=== PATIENT | female | born 2005 | race Two or more races ===

== ENCOUNTER 2025-09-26 22:36 | Emergency (ER) | payer BC, MEDICAID, SELFPAY ==
[2025-09-26 22:37] VITALS: BMI 24.1
[2025-09-26 23:44] VITALS: BP 106/62; PULSE 108; RESP 20; TEMP 37.3; O2SAT 98
--- NOTE | 2025-09-27 00:32 | PD.EDFEVER ---
ED Fever RME/HPI General Chief Complaint: Nausea/Vomiting/Diarrhea Stated Complaint: N/V/FEVER, APPROX 10WEEKS PREG Time Seen by Provider: 09/27/25 00:48 Arrival date/time: 09/26/25 22:36 RME / HPI RME / HPI Narrative: See MDM for Dr. Donato's HPI Documentation. Related Data Previous Rx's ?Medication ?Instructions ?Recorded ondansetron 4 mg disintegrating 4 mg PO TID PRN nausea and 09/27/25 tablet vomiting 30 days #30 tabs oseltamivir 75 mg capsule (Tamiflu) 75 mg PO BID 5 days #10 caps 09/27/25 Allergies Allergy/AdvReac Type Severity Reaction Status Date / Time No Known Allergies Allergy Verified 09/26/25 22:38 Review of Systems Review of Systems Systems Reviewed: All systems reviewed, normal except as documented Past Medical History Social History SMOKING STATUS: Never smoker Physical Exam Narrative Physical exam: See MDM for Dr. Donato's Physical Exam Documentation. ED Exam Narrative Physical exam: See MDM for Dr. Donato's Physical Exam Documentation. Course Quality Measures none Orders Category Date Time Status Bedside COVID-19 Antigen Test NOW Care 09/27/25 00:50 Completed Bedside Influenza A&B Antigen Test NOW Care 09/27/25 00:50 Completed Saline [Insert IV] NOW Care 09/27/25 00:49 Completed US OB >= 14 weeks Fetus Stat Exams 09/27/25 00:50 Completed US abdomen limited Stat Exams 09/27/25 00:51 Completed US gall bladder Stat Exams 09/27/25 00:50 Completed XR chest 1V portable Stat Exams 09/27/25 00:50 Completed Amylase Stat Lab 09/27/25 01:41 Completed Beta HCG,Quantitative Stat Lab 09/27/25 01:41 Completed Bilirubin,Direct Stat Lab 09/27/25 01:41 Completed Blood Culture (Lab) Stat Lab 09/27/25 01:41 Received CBC Stat Lab 09/27/25 01:41 Completed CMP [Comprehensive Metabolic Panel] Stat Lab 09/27/25 01:41 Completed CRP [C-Reactive Protein] Stat Lab 09/27/25 01:41 Completed ESR [Sed Rate (ESR)] Stat Lab 09/27/25 01:41 Completed Lactate (Lactic Acid) Stat Lab 09/27/25 01:41 Completed Lipase Stat Lab 09/27/25 01:41 Completed Magnesium Stat Lab 09/27/25 01:41 Completed Procalcitonin Stat Lab 09/27/25 01:41 Completed Rh Testing Only Stat Lab 09/27/25 01:41 Completed TSH [Thyroid Stimulating Hormone] Stat Lab 09/27/25 01:41 Completed Acetaminophen Tab [Tylenol ES Tab] Med 09/27/25 00:49 Discontinued 1,000 mg PO X1 ONE Morphine* Inj Med 09/27/25 00:49 Discontinued 2 mg IV X1 ONE Ondansetron Inj [Zofran Inj] Med 09/27/25 00:49 Discontinued 4 mg IVP X1 ONE Oseltamivir [Tamiflu] Med 09/27/25 02:49 Discontinued 75 mg PO X1 ONE Sodium Chloride 0.9% 1000 ml [Ns] 1,000 ml Med 09/27/25 00:49 Discontinued IV 999 mls/hr Vital Signs Vital signs: Vital Signs Temperature 99.2 F 09/26/25 23:44 Pulse Rate 108 H 09/26/25 23:44 Respiratory Rate 20 09/26/25 23:44 Blood Pressure 106/62 09/26/25 23:44 Pulse Oximetry (%) 98 09/26/25 23:44 Oxygen Delivery Method Room Air 09/26/25 23:44 Fever MDM Narrative MDM Narrative:: This section includes all my notes and documentations, including HPI, PE, and ED course. Baldo Donato MD HPI: 19 y/o female here with about 24-hour history of headache subjective fever and chills and bodyaches and malaise and nausea. She is currently , about 8 weeks . No care yet. She reports cramping. No vaginal bleeding. No other complaints. ROS: All negative except as documented in HPI. Physical Exam: General: Alert and oriented. Appears uncomfortable. Fever noted. Eyes: Conjunctivae and lids clear. EOMI. PERRL. ENT: No nasal congestion. Pharynx normal. Tympanic membrane normal bilaterally. Neck: Supple. No lymphadenopathy. Heart: RRR. Lungs: No respiratory distress. Good air movement. No rhonchi, wheezing, rales. Abdomen: Soft with equivocal tenderness, difficult to localize. Normal bowel sounds. No distension. No rebound or guarding. Back: No CVA tenderness. Legs: No clubbing, cyanosis, edema. Skin: Warm and dry. Neuro: Alert and oriented X 3. I reviewed all diagnostic test results: My interpretation of the chest x-ray is NAD. My review of the US report is 7 5/7-week IUP. My review of the Gallbladder US report is NAD. My review of the Abdomen US report is no appendicitis. Blood tests and urine tests unremarkable. Covid/Strep negative. Influenza Positive. At this point, diagnoses include: Influenza Treatment here included: IVF Tylenol 1 G PO Morphine 2 mg IV Zofran 4 mg IV Tamiflu 75 mg PO Significant improvement noted. Recommended more outpatient care. Based on my best medical judgment, made decision no further evaluation or treatment indicated at this time. Patient and sister understands and agrees to the discharge instructions customized and printed, see below. Discharge Instructions from Dr. Donato printed for you: 1. After evaluation, you are sick from Influenza (see attached handout). Take Tamiflu as prescribed. Eat regular nutritious meals. For good hydration, increase oral fluid and maintain clear urine. If dark or yellow, increase oral fluid. Zofran for nausea/vomiting. 2. Your baby is alive and doing well. Take vitamins daily. 3. See a private doctor on 09/28/2025 for recheck. Ask to review all test results and official radiology reports, to make sure you receive all necessary follow-ups and monitoring. Ask for help seeing nutrition services assistant to start your care. 4. Seek immediate medical care with worsening or vaginal bleeding or with any concerns. Baldo Donato MD Patient data External records reviewed:: [facility] previous records (No prior ED records available for review) Clinical information provided by:: patient Social determinants that could affect healthcare access:: none Patient has the following chronic illnesses:: None reported How is presenting disease/condition affected by chronic disease/condition?: no chronic disease Evaluation data The following diagnostics were reviewed and interpreted by me:: lab results and radiology exam(s) Lab and/or radiology exams considered but not ordered:: None Interpretation Summary: I reviewed all diagnostic test results: My interpretation of the chest x-ray is NAD. My review of the US report is 7 5/7-week IUP. My review of the Gallbladder US report is NAD. My review of the Abdomen US report is no appendicitis. Blood tests and urine tests unremarkable. Covid/Strep negative. Influenza Positive. Medications / Prescriptions Medications or Prescriptions considered but not ordered:: None Medication administrations:: Medication Administration History Discontinued Medications Acetaminophen (Acetaminophen 500 Mg Tablet) 1,000 mg PO X1 ONE Stop: 09/27/25 00:50 Last Admin: 09/27/25 01:35 Dose: 1,000 mg Documented By: ROYAL Sodium Chloride (Ns) 1,000 mls @ 999 mls/hr IV .Q1H1M ONE Stop: 09/27/25 01:49 Last Infusion: 09/27/25 03:12 Dose: Infused Documented By: Admin: 09/27/25 01:34 Dose: 999 mls/hr Documented By: ROYAL Morphine Sulfate (Morphine Sulf Inj 4 Mg/Ml Vial) 2 mg IV X1 ONE Stop: 09/27/25 00:50 Last Admin: 09/27/25 01:35 Dose: 2 mg Documented By: ROYAL Ondansetron HCl (Ondansetron Inj 2 Mg/Ml Inj 2 Ml) 4 mg IVP X1 ONE; Protocol Stop: 09/27/25 00:50 Last Admin: 09/27/25 01:34 Dose: 4 mg Documented By: ROYAL Oseltamivir Phosphate (Oseltamivir 75 Mg Capsule) 75 mg PO X1 ONE Stop: 09/27/25 02:50 Last Admin: 09/27/25 03:10 Dose: 75 mg Documented By: ROYAL Treatment here included: IVF Tylenol 1 G PO Morphine 2 mg IV Zofran 4 mg IV Tamiflu 75 mg PO Consultations Consultation(s) initiated? (list below): No Diagnosis Fever Differential Diagnosis: fever of unknown origin, gastroenteritis, community acquired pneumonia, pyelonephritis, viral infection, sepsis and influenza Most likely diagnosis given after review of the tests above:: Influenza Admission Indicated Admission indicated?: not indicated Explain why admission is indicated or not indicated:: With significant improvement and no condition needing emergent intervention, there was no indication for admission. Admission Request Was there a request for admission?: No Disposition Plan Disposition Plan: Discharge Discharge Attestation Discharge Attestation: The patient and all family members were given an opportunity to ask questions and understood the discharge instructions. Discharge instructions specifically effects, indications for sooner follow up or return to the emergency department, and the expected course of current diagnosis. Patient condition: Stable Discharge Plan Plan Patient Disposition: HOME (Self Care) Prescriptions/Referrals Prescriptions/Med Rec: New oseltamivir [Tamiflu] 75 mg capsule 75 mg PO BID 5 Days Qty: 10 0RF ondansetron 4 mg tablet,disintegrating 4 mg PO TID PRN (Reason: nausea and vomiting) 30 Days Qty: 30 0RF Referrals: Alexia Joseph FNP ([email or web address]) [Primary Care Provider] - In 1 week Problem List Clinical Impression: Influenza, Patient/Caregiver Discharge Instructions Discharge Activity: activity as tolerated Education Materials: First Trimester, Preg 2nd Trimester, ED Influenza (Adult) Additional Instructions: Discharge Instructions from Dr. Donato printed for you: 1. After evaluation, you are sick from Influenza (see attached handout). Take Tamiflu as prescribed. Eat regular nutritious meals. For good hydration, increase oral fluid and maintain clear urine. If dark or yellow, increase oral fluid. Zofran for nausea/vomiting. 2. Your baby is alive and doing well. Take vitamins daily. 3. See a private doctor on 09/28/2025 for recheck. Ask to review all test results and official radiology reports, to make sure you receive all necessary follow-ups and monitoring. Ask for help seeing nutrition services assistant to start your care. 4. Seek immediate medical care with worsening or vaginal bleeding or with any concerns. Instrucciones de kelly del Dr. Donato (impresas para usted): 1. Tras la evaluaci?n, se le yang diagnosticado gripe (donis folleto adjunto). Sterling Tamiflu seg?n lo recetado. Consuma comidas nutritivas regularmente. Para john paul buena hidrataci?n, aumente la ingesta de l?quidos y aseg?rese de que la orina sea allison. Si est? oscura o amarilla, aumente la ingesta de l?quidos. Sterling Zofran para las n?useas y los v?mitos. 2. Gilmore beb? est? vivo y en buen estado de guy. Sterling vitaminas prenatales diariamente. 3. Consulte con un m?dico particular el 09/28/2025 para john paul revisi?n. Solicite revisar todos los resultados de las pruebas y los informes radiol?gicos oficiales para asegurarse de recibir el seguimiento y la monitorizaci?n necesarios. Solicite ayuda para programar john paul faby con un obstetra e iniciar gilmore atenci?n . 4. Busque atenci?n m?dica de inmediato si boubacar s?ntomas empeoran, si presenta sangrado vaginal o si tiene alguna otra inquietud. Print Language: Norwegian Stand Alone Forms: Maya Award Info., Work/School Release, Patient Portal Info Letter
--- NOTE | 2025-09-27 00:50 | XR_ITS ---
Examination: Abdomen sonogram, Limited Date and time of exam: 09/27/2025 at 3:52 a.m. CLINICAL INDICATION: Right upper quadrant tenderness for several hours Technique: Real-time heaton scale transabdominal sonographic images of the upper abdomen obtained. Findings: The gallbladder is very nicely visualized and appears perfectly normal and the gallbladder wall appears perfectly normal in thickness. Common bile duct appears normal, and its diameter measures 0.37 cm. The echogenicity is normal throughout the liver with no focal abnormalities are seen anywhere in the liver. No abnormalities are seen in the head or mid body of the pancreas. No ascites is noted. The upper third of the right kidney is visualized and no abnormalities are seen in this region. IMPRESSION: 1. Normal ultrasound exam of the right upper abdominal quadrant and gallbladder
--- NOTE | 2025-09-27 00:50 | XR_ITS ---
Upright PA chest film on 09/27/2025 at 1254 No comparison studies. CLINICAL INDICATION: female has fever chills and abdominal cramping for 24 hours The heart and mediastinum are radiographically normal. Both lungs and pleural space appear normal. The bony thorax appears normal IMPRESSION: 1. Normal chest for
--- NOTE | 2025-09-27 00:50 | XR_ITS ---
Examination: Complete OB ultrasound greater than 14 weeks Date and time of exam: 09/27/2025 at 3:36 a.m. CLINICAL INDICATION: Pelvic cramping pain no abnormal vaginal bleeding, recent positive test Findings: Viable intrauterine single fetus with single amniotic sac The crown-rump length of the fetus measures 1.3 consistent with 7-week 5-day gestational age. The size of the gestational sac measures 3.4 cm, consistent with gestational age of 8 weeks 4 days heart rate is 176 bpm. Normal yolk sac is visible. There is a very small curvilinear collection of fluid noted posterior inferior to the gestational sac consistent with a very small subchorionic hemorrhage. No abnormal fluid is seen in the cul-de-sac. The right ovary is completely obscured by overlying bowel gas. Left the left ovary has a normal size and configuration, and contains 1 small normal sized follicular cyst, maximum diameter 1.9 cm.. . Impression: 1. This study shows an early intrauterine with a single viable intrauterine fetus with a normal heart rate of 176 bpm. 2. There is an extremely minimal but definite subchorionic hemorrhage noted posteroinferior to the gestational sac. 3. There is a small normal size follicular cyst in the left ovary 4. No other abnormalities are seen anywhere in the study..
--- NOTE | 2025-09-27 00:51 | XR_ITS ---
Examination: Abdomen sonogram, Limited, attention to the right lower quadrant. Date and time of exam: 09/27/2025 at 3:33 a.m. INDICATION: Pain and fever for 1 day Technique: Real-time heaton scale transabdominal sonographic images of the upper abdomen obtained. Findings: There is a large amount of bowel gas overlapping the area of the cecum and appendix, these structures are not well seen at all Portion of the uterus can be identified, there is a definite prominent gestational sac within the endometrial cavity IMPRESSION: 1. There is a moderately prominent size gestational sac seen in the endometrial cavity of the uterus indicating an early on this single image no fetus is identified, but this ultrasound was not a pelvic ultrasound 2. There is a very large amount of bowel gas overlapping the right hemiabdomen and right lower quadrant, hence the cecum and appendix cannot be visualized.
[2025-09-27] MEDS: ONDANSETRON INJ 2 MG/ML INJ 2 ML 4 MG IVP (01:34)
[2025-09-27] MEDS: SODIUM CHLORIDE 0.9% 1000 ML 1,000 ML 999 ML IV (01:34)
[2025-09-27 01:35] VITALS: TEMP 37.9
[2025-09-27] MEDS: MORPHINE SULF INJ 4 MG/ML VIAL 2 MG IV (01:35)
[2025-09-27] MEDS: ACETAMINOPHEN 500 MG TABLET 1000 MG PO (01:35)
[2025-09-27 01:52] LABS: Lactate (Lactic Acid) 1.0 mMol/L (0.4-2.0)
[2025-09-27 01:55] LABS: Sed Rate (ESR) 19 mm/hr (0-20)
[2025-09-27 01:57] LABS: Basophils # (Auto) 0.0 Thou/mm3 (0.0-0.2); Basophils % (Auto) 0 % (0-2.5); Eosinophils # (Auto) 0.1 Thou/mm3 (0.0-0.5); Eosinophils % (Auto) 2 % (0-10); Hematocrit 29.1 % (36.0-46.0); Hemoglobin 9.7 g/dL (12.0-16.0); Immature Granulocytes Auto 0.02 Thou/mm3 (0.00-0.00); Lymphocytes # (Auto) 1.5 Thou/mm3 (1.0-5.0); Lymphocytes % (Auto) 25 % (10-50); Mean Corpuscular HGB Conc 33.3 g/dl (31.0-37.0); Mean Corpuscular Hemoglobin 27.2 pg (25.0-35.0); Mean Corpuscular Volume 82 fL (80-100); Monocytes # (Auto) 0.6 Thou/mm3 (0.0-0.8); Monocytes % (Auto) 10 % (0-12); Neutrophils # (Auto) 3.7 Thou/mm3 (1.8-7.7); Neutrophils % (Auto) 63 % (37-80); Nucleated Red Blood Cell # 0.00 Thou/mm3 (0.00-0.00); Nucleated Red Blood Cell % 0 /100 WBC (0); Platelet Count 225 Thou/mm3 (140-440); RDW Standard Deviation 40.2 fL (36.4-46.3); Red Blood Count 3.57 Miln/mm3 (4.00-5.20); White Blood Count 5.9 Thou/mm3 (4.5-11.0)
[2025-09-27 02:25] VITALS: TEMP 36.7
[2025-09-27 02:36] LABS: Alanine Aminotransferase 37 U/L (10-49); Albumin, Serum 4.3 gm/dL (3.5-5.0); Albumin/Globulin Ratio 1.5 (1.2-2.2); Alkaline Phosphatase 54 U/L (46-116); Amylase 81 U/L (30-118); Anion Gap 12 (7-16); Aspartate Amino Transferase 28 U/L (0-34); BUN/Creatinine Ratio 11 Ratio (12-20); Bilirubin,Direct < 0.1 mg/dL (0.0-0.3); Bilirubin,Total 0.2 mg/dL (0.3-1.2); Blood Urea Nitrogen 8 mg/dL (9-23); C-Reactive Protein < 0.5 mg/dL (0.0-0.9); Calcium 8.8 mg/dL (8.3-10.6); Calcium (Corrected) 8.8 mg/dL (8.5-10.1); Carbon Dioxide 21.2 mMol/L (20.0-31.0); Chloride 105 mMol/L (98-107); Creatinine (Component) 0.7 mg/dL (0.6-1.3); Estimated Creatinine Clearance 116.3 mL/min (>60); Globulin 2.8 gm/dL (2.3-3.5); Glucose 87 mg/dL (74-106); Lipase 27 U/L (12-53); Magnesium 1.7 mg/dL (1.6-2.6); Osmolality,Calculated 272 (275-295); Potassium 3.8 mMol/L (3.4-5.1); Procalcitonin 0.11 ng/ml (0.0-0.49); Sodium 138 mMol/L (136-145); Thyroid Stimulating Hormone 0.53 uIU/mL (0.55-4.78); Total Protein 7.1 gm/dL (5.7-8.2); eGFR > 60 See Note
[2025-09-27] MEDS: OSELTAMIVIR 75 MG CAPSULE PO (03:10)
--- NOTE | 2025-09-27 04:37 | PRELIM_ITS ---
Focused right lower quadrant ultrasound. September 27, 2025 0332 hours Clinical history: Abdominal pain, assess for appendicitis Comparison: No prior study is available for comparison. Findings: Focused examination of the right lower quadrant demonstrates no secondary sonographic signs for acute appendicitis in the form of mass, free fluid or fluid collection. The normal appendix is not definitively visualized. Gestational sac is seen in the uterus. Impression: The appendix is not visualized. No sonographic evidence for acute appendicitis is demonstrated. If there continues to be significant clinical concern for appendicitis, further imaging evaluation may be considered. Recommend clinical correlation and followup. Intrauterine . Recommend clinical correlation and follow-up. Report Electronically Signed By: Tunde Ambrocio 09/27/2025 4:37:23 AM [EST]
--- NOTE | 2025-09-27 04:57 | PRELIM_ITS ---
Obstetric ultrasound (transabdominal). September 27, 2025 0335 hours Clinical history: Cramping Technique: Real-time ultrasound was performed using Duplex scanning including arterial inflow, venous outflow, color and spectral Doppler analysis of both ovaries. Comparison: No prior study is available for comparison. Findings: There is an intrauterine gestation with a single live fetus of mean gestational age 7weeks and 5days (CRL= 1.37cm). There is a 3mm subchorionic hematoma. cardiac activity is present at a heart rate of 176beats per minute. Estimated due date by ultrasound is 05/11/2026. The uterus measures 12 x 4.4 x 6.9 cm. No solid masses. The right ovary is not seen. The left ovary measures 3.7 x 2x 2.9cm and demonstrates normal arterial flow. There is a cyst measuring 1.7 x 1.2 x 1.9 cm. There is nofree fluid in the pelvis. Impression: Intrauterine gestation with a single live fetus of mean gestational age 7weeks and 5days. Tiny subchorionic hematoma. Small left ovarian cyst. Report Electronically Signed By: Tunde Ambrocio 09/27/2025 4:56:34 AM [EST]
--- NOTE | 2025-09-27 05:07 | PRELIM_ITS ---
Gallbladder ultrasound. September 27, 2025 0346 hours Clinical history: RUQ tenderness Comparison: No prior study is available for comparison. Findings: The visualized liver is normal in echogenicity without mass or ductal dilatation. The main portal vein is patent and demonstrates hepatopetal flow.No gallbladder calculus, wall thickening or pericholecystic fluid is identified. The common duct is normal in caliber at 4 mm. The pancreas is unremarkable. No free fluid is demonstrated on the submitted images. Impression: Unremarkable gallbladder sonogram. Report Electronically Signed By: Tunde Ambrocio 09/27/2025 5:06:37 AM [EST]
== END 2025-09-27 04:57 | disposition home or self-care (01) ==
PROVIDERS: Emergency Provider Emergency Medicine; PCP Nurse Practitioner Primary Care
DX: O99.511 Diseases of the respiratory system complicating pregnancy, first trimester (principal); J11.1 Influenza due to unidentified influenza virus with other respiratory manifestations; Z3A.08 8 weeks gestation of pregnancy
CPT/HCPCS: 36415; 71045; 76705; 76805; 80053; 81001; 82150; 82248; 83605; 83690; 83735; 84145; 84443; 84702; 85025; 85652; 86140; 86901; 87040; 87502; 87635; 87651; 96361; 96374; 99284; J2270; J2405; J7030; A9270